=== PATIENT | male | born 1940 | race Caucasian/White ===

== ENCOUNTER 2018-08-23 08:26 | Emergency (ER) | payer MEDICARE, OTHER ==
[~2018-08-23] VITALS: Ht 185.4 cm; Wt 81.6 kg
[~2018-08-23 08:26] MED LIST: CALC500T51 PO; CALCIUM; CHOL100099 PO; MAGN500C16 PO; METHYL B PO; OMEP20CA4 PO; [UNRECOGNIZED DRUG - OTHER]
[2018-08-23] MEDS ORDERED: LIDOCAINE HCL 2% 20 ML VIAL TP ONE (08:45)
[2018-08-23] MEDS ORDERED: IV NORMAL SALINE 1000 ML BAG IV ONE (08:45)
[2018-08-23] MEDS ORDERED: TDAP DIPH,PERTUSS,TET VAC/PF 0.5 ML DISP.SYRIN IM ONE ×2 (08:45→08:47)
[2018-08-23] MEDS ORDERED: FAMO-132 PO (08:55)
[2018-08-23] MEDS ORDERED: AMLO10TA7 PO (08:55)
[2018-08-23] MEDS ORDERED: ASPI81TA31 PO (08:55)
[2018-08-23] MEDS ORDERED: TAMS0.4C34 PO (08:55)
[2018-08-23 09:03] LABS: BASOPHILS % (AUTO) 0.3 % (0.0-2.0); EOSINOPHILS # (AUTO) 0.1 K/uL (0.0-0.7); EOSINOPHILS % (AUTO) 1.5 % (0.0-7.0); HEMATOCRIT 41.1 % (36.7-47.1); HEMOGLOBIN 14.2 g/dL (12.5-16.3); LYMPHOCYTES # (AUTO) 0.5 K/uL (20.0-40.0); LYMPHOCYTES % (AUTO) 9.3 % (20.5-51.5); MEAN CORPUSCULAR HEMOGLOBIN 32.2 uug (23.8-33.4); MEAN CORPUSCULAR HGB CONC 35 g/dL (32.5-36.3); MEAN CORPUSCULAR VOLUME 93.3 fL (73.0-96.2); MONOCYTES # (AUTO) 0.2 K/uL (2.0-10.0); MONOCYTES % (AUTO) 3.8 % (0.0-11.0); NEUTROPHILS # (AUTO) 4.9 K/uL (1.8-8.9); NEUTROPHILS % (AUTO) 85.1 % (38.5-71.5); PLATELET COUNT (AUTO) 141 K/uL (152-348); RED BLOOD CELL COUNT(AUTO) 4.41 MIL/uL (4.06-5.63); WHITE BLOOD COUNT (AUTO) 5.7 K/uL (3.6-10.2)
[2018-08-23 09:11] LABS: CARBON DIOXIDE 28 mmol/L (21-32); CHLORIDE 105 mmol/L (98-107); GLUCOSE 135 mg/dL (74-106); POTASSIUM 4.2 mmol/L (3.5-5.1); UREA NITROGEN, BLOOD 19 mg/dL (7-18)
[2018-08-23] MEDS ORDERED: NEOMY/BACITRA/POLYMYXIN B OINT UD PACKET TP ONE ×2 (09:14→09:45)
[2018-08-23 09:16] LABS: ALANINE AMINOTRANSFERASE 20 U/L (16-63); ALKALINE PHOSPHATASE 40 U/L (50-136); ASPARTATE AMINOTRANSFERASE 19 U/L (15-37); BILIRUBIN,DIRECT 0.2 mg/dL (0.0-0.2); BILIRUBIN,TOTAL 0.8 mg/dL (0.2-1.0); TOTAL PROTEIN, SERUM 6.4 g/dL (6.4-8.2)
[2018-08-23] MEDS ORDERED: MAG HYDROX/AL HYDROX/SIMETH 30 ML LIQUID UDC ONE (09:28)
[2018-08-23] MEDS ORDERED: DICYCLOMINE HCL LIQ 10 MG/5 ML UDC ONE (09:28)
[2018-08-23] MEDS ORDERED: MAG HYDROX/AL HYDROX/SIMETH 30 ML LIQUID UDC PO ONE (09:30)
[2018-08-23] MEDS ORDERED: DICYCLOMINE HCL LIQ 10 MG/5 ML UDC PO ONE (09:30)
--- NOTE | 2018-08-23 09:50 | NUR ---
Patient discharged to home in stable conditon. Written and verbal after care instructions given. Patient verbalizes understanding of instructions.pt walks ini steady gait. pt with , not driving, says feels good and is ready to go home.
[2018-08-23 09:54] VITALS: BP 136/76
== END 2018-08-23 09:55 | disposition home or self-care (01) ==
LOC: ER 08:26
DX: S01.111A Laceration without foreign body of right eyelid and periocular area, initial encounter (principal); R55 Syncope and collapse; R19.7 Diarrhea, unspecified; K21.9 Gastro-esophageal reflux disease without esophagitis; E78.5 Hyperlipidemia, unspecified; I10 Essential (primary) hypertension; Z79.82 Long term (current) use of aspirin; Z79.899 Other long term (current) drug therapy; W18.39XA Other fall on same level, initial encounter; Y93.89 Activity, other specified; Y92.89 Other specified places as the place of occurrence of the external cause; Y99.8 Other external cause status
CPT/HCPCS: 36415; 70030-TC; 71045; 85025; 85730; 90715; 93005; A4217; A4663

== ENCOUNTER 2018-09-01 12:09 | Emergency (ER) | payer MEDICARE, OTHER ==
[~2018-09-01] VITALS: Ht 182.9 cm; Wt 81.6 kg
[~2018-09-01 12:09] MED LIST changes: +AMLO10TA7 PO; +ASPI81TA31 PO; -CALC500T51 PO; -CALCIUM; -CHOL100099 PO; +FAMO-132 PO; -MAGN500C16 PO; -METHYL B PO; -OMEP20CA4 PO; +TAMS0.4C34 PO; -[UNRECOGNIZED DRUG - OTHER]
--- NOTE | 2018-09-01 12:39 | NUR ---
PT WAS EVALUATED BY DR IRAHETA. PT WAS D/C'd TO HOME. D/C INSTRUCTIONS GIVEN TO THE PT.
[2018-09-01 12:40] VITALS: BP 147/81
== END 2018-09-01 12:43 | disposition home or self-care (01) ==
LOC: ER 12:11
DX: S01.111D Laceration without foreign body of right eyelid and periocular area, subsequent encounter (principal); K21.9 Gastro-esophageal reflux disease without esophagitis; E78.5 Hyperlipidemia, unspecified; I10 Essential (primary) hypertension; Z79.82 Long term (current) use of aspirin; Z79.899 Other long term (current) drug therapy; X58.XXXD Exposure to other specified factors, subsequent encounter
CPT/HCPCS: A4663